=== PATIENT | female | born 1955 | race Caucasian/White ===

== ENCOUNTER 2020-02-19 13:55 | Inpatient (IN) ==
[2020-02-19] MEDS ORDERED: *HR* FentaNYL (PF) 100 MCG/2 ML VIAL IVP ONE ×2 (14:05→15:25)
[2020-02-19 14:21] LABS: Basophils % 0.1 %; Eosinophils % 0.2 %; Hematocrit 38.6 % (35.3-44.9); Hemoglobin 12.2 g/dL (11.5-15.4); Immature Granulocytes % 0.3 % (0-4); Lymphocytes # 0.8 K/mcL (0.6-4.6); Lymphocytes % 9.4 %; Mean Corpuscular HGB Conc 31.6 g/dL (31.6-35.5); Mean Corpuscular Hemoglobin 27.3 pg (28.0-33.3); Mean Corpuscular Volume 86.4 fL (83.0-100.0); Mean Platelet Volume 10.6 fL (9.4-12.4); Monocytes # 0.4 K/mcL (0.0-1.3); Monocytes % 4.1 %; Neutrophils # 7.7 K/mcL (1.6-8.9); Platelet Count 259 K/mcL (140-400); Red Blood Count 4.47 M/mcL (3.82-4.97); Segmented Neutrophils % 85.9 %
[2020-02-19 14:27] LABS: Prothrombin Time 10.9 Seconds (9.4-12.1)
[2020-02-19 15:38] LABS: Alanine Aminotransferase 27 Units/L (7-52); Albumin 3.9 g/dL (3.5-5.7); Albumin/Globulin Ratio 1.4 (1.1-2.2); Alkaline Phosphatase 97 Units/L (34-104); Aspartate Amino Transferase 22 Units/L (13-39); BUN/Creatinine Ratio 22 (6-26); Bilirubin,Total 0.2 mg/dL (0.3-1.0); Blood Urea Nitrogen 17 mg/dL (8-23); Calcium 9.9 mg/dL (8.6-10.3); Carbon Dioxide 24 mEq/L (23-29); Chloride 106 mEq/L (98-107); Globulin 2.7 g/dL (2.4-3.5); Glucose 130 mg/dL (70-105); Osmolality,Calculated 289 (280-300); Potassium 3.9 mEq/L (3.5-5.1); Sodium 138 mEq/L (136-145); Total Protein 6.6 g/dL (6.4-8.9); eGFR For African Americans > 60 (> 60); eGFR For Non-African Americans > 60 (> 60)
[2020-02-19] MEDS ORDERED: Acetaminophen 325 MG TABLET PO PRN (15:52)
[2020-02-19] MEDS ORDERED: Naloxone 0.4 MG/ML INJ IVP PRN (15:52)
[2020-02-19] MEDS ORDERED: Ondansetron 4 MG/2 ML VIAL IVP PRN (15:52)
[2020-02-19] MEDS ORDERED: Ketorolac 15 MG/ML VIAL IVP PRN (15:52)
[2020-02-19] MEDS ORDERED: Artificial Tears SOLN 15 ML BOTTLE BOTH EYES PRN (17:22)
[2020-02-19] MEDS ORDERED: hydrOXYzine pamoate 25 MG CAPSULE PO PRN (17:22)
[2020-02-19] MEDS: *HR* Heparin 5,000 UNIT/ML VIAL SQ SCH ×2 (18:26→23:39)
[2020-02-19] MEDS: *HR* OxyCODONE Immed Rel 5 MG TABLET PO PRN (18:28)
[2020-02-19] MEDS: amLODIPine 5 MG TABLET PO SCH (18:29)
[2020-02-19] MEDS: Gabapentin 400 MG CAPSULE PO SCH (19:56)
[2020-02-19] MEDS: *HR* HYDROcodone/Acet 5/325 mg TABLET PO PRN (20:11)
[2020-02-19] MEDS ORDERED: Latanoprost 2.5 ML BOTTLE BOTH EYES SCH (21:00)
[2020-02-19] MEDS ORDERED: rOPINIRole 0.25 MG TABLET PO SCH (21:00)
[2020-02-20] MEDS: *HR* OxyCODONE Immed Rel 5 MG TABLET PO PRN ×2 (00:49→10:45)
[2020-02-20 01:41] LABS: Hematocrit 40.3 % (35.3-44.9); Hemoglobin 12.9 g/dL (11.5-15.4); Mean Corpuscular Hemoglobin 27.3 pg (28.0-33.3); Mean Corpuscular Volume 85.4 fL (83.0-100.0); Mean Platelet Volume 11.2 fL (9.4-12.4); Platelet Count 263 K/mcL (140-400); Red Blood Count 4.72 M/mcL (3.82-4.97); Red Cell Distribution Width 19.2 % (11.5-14.5); White Blood Count 7.5 K/mcL (4.3-11.1)
[2020-02-20 02:04] LABS: BUN/Creatinine Ratio 19 (6-26); Blood Urea Nitrogen 13 mg/dL (8-23); Calcium 10.4 mg/dL (8.6-10.3); Carbon Dioxide 23 mEq/L (23-29); Chloride 107 mEq/L (98-107); Glucose 94 mg/dL (70-105); Magnesium 1.9 mg/dL (1.6-2.6); Osmolality,Calculated 288 (280-300); Phosphorous 2.7 mg/dL (2.7-4.5); Potassium 3.9 mEq/L (3.5-5.1); Sodium 139 mEq/L (136-145); eGFR For African Americans > 60 (> 60); eGFR For Non-African Americans > 60 (> 60)
[2020-02-20] MEDS: *HR* HYDROcodone/Acet 5/325 mg TABLET PO PRN ×2 (06:22→20:21)
[2020-02-20] MEDS: Gabapentin 400 MG CAPSULE PO SCH ×2 (07:42→20:51)
[2020-02-20] MEDS: amLODIPine 5 MG TABLET PO SCH (07:42)
[2020-02-20] MEDS: *HR* Heparin 5,000 UNIT/ML VIAL SQ SCH ×2 (07:43→18:23)
[2020-02-20] MEDS ORDERED: amLODIPine 5 MG TABLET PO ONE (08:26)
[2020-02-20] MEDS ORDERED: Cholecalciferol (D-3) 1,000 UNIT (25MCG) TABLET PO SCH (09:00)
[2020-02-20] MEDS ORDERED: *HR* OxyCODONE Immed Rel 5 MG TABLET PO PRN (15:17)
[2020-02-20] MEDS ORDERED: Ondansetron 4 MG/2 ML VIAL IVP ONE (15:17)
[2020-02-20] MEDS ORDERED: Ethanol\\Acetic Acid\\Na Ace\\Ben 1,000 ML IRRIG.SOLN IR ONE (15:25)
[2020-02-20] MEDS ORDERED: Ondansetron 4 MG/2 ML VIAL ONE (15:37)
[2020-02-20] MEDS ORDERED: Lidocaine HCL 4 ML Topical Solution (Laryng-O-Jet Kit Sterile Pak) TP ONE (15:37)
[2020-02-20] MEDS ORDERED: *HR* Propofol 200 MG/20 ML VIAL IVP ONE (15:37)
[2020-02-20] MEDS ORDERED: Dexamethasone 4 MG/ML VIAL ONE (15:37)
[2020-02-20] MEDS ORDERED: Lidocaine -MPF 2% 2 ML VIAL ONE (15:37)
[2020-02-20] MEDS ORDERED: *HR* FentaNYL (PF) 100 MCG/2 ML VIAL ONE (15:39)
[2020-02-20] MEDS ORDERED: Vancomycin 1,000 MG VIAL ONE (15:50)
[2020-02-20] MEDS ORDERED: *HR* Midazolam HCl 2 MG/2 ML VIAL ONE (15:56)
[2020-02-20] MEDS ORDERED: CeFAZolin Syr 2,000MG/20 ML 2,000 MG/20 ML SYRINGE IVPB ONE (16:46)
[2020-02-20] MEDS: *HR* HYDROmorphone PF 0.5 MG/0.5 ML SYRINGE IVP PRN ×2 (17:43→17:56)
[2020-02-20] MEDS: *HR* Labetalol 20 MG/4 ML SYRINGE IVP PRN ×2 (18:03→18:13)
[2020-02-20] MEDS ORDERED: Artificial Tears SOLN 15 ML BOTTLE BOTH EYES PRN (18:32)
[2020-02-20] MEDS ORDERED: *HR* HYDROmorphone PF 0.5 MG/0.5 ML SYRINGE IVP PRN (18:32)
[2020-02-20] MEDS ORDERED: Naloxone 0.4 MG/ML INJ IVP PRN (18:32)
[2020-02-20] MEDS ORDERED: hydrOXYzine pamoate 25 MG CAPSULE PO PRN (18:32)
[2020-02-20] MEDS ORDERED: Acetaminophen 325 MG TABLET PO PRN (18:32)
[2020-02-20] MEDS ORDERED: Ringers Solution, Lactated 1,000 ML IVC SCH (18:32)
[2020-02-20] MEDS ORDERED: Ondansetron 4 MG/2 ML VIAL IVP PRN (18:32)
[2020-02-20] MEDS: rOPINIRole 0.25 MG TABLET PO SCH (20:51)
[2020-02-20] MEDS: Latanoprost 2.5 ML BOTTLE BOTH EYES SCH (21:02)
[2020-02-20] MEDS: ceFAZolin 2,000 MG in 0.9 % Sodium Chloride 100 ML IVPB SCH (23:42)
[2020-02-21] MEDS: *HR* OxyCODONE Immed Rel 5 MG TABLET PO PRN ×3 (03:41→18:36)
[2020-02-21 06:20] LABS: Hematocrit 31.7 % (35.3-44.9); Hematocrit 33.3 % (35.3-44.9); Hemoglobin 10.5 g/dL (11.5-15.4); Immature Granulocytes % 0.2 % (0-4); Lymphocytes % 11.6 %; Mean Corpuscular HGB Conc 31.5 g/dL (31.6-35.5); Mean Corpuscular HGB Conc 32.8 g/dL (31.6-35.5); Mean Corpuscular Hemoglobin 26.9 pg (28.0-33.3); Mean Corpuscular Volume 85.2 fL (83.0-100.0); Mean Platelet Volume 10.7 fL (9.4-12.4); Mean Platelet Volume 10.8 fL (9.4-12.4); Monocytes # 0.7 K/mcL (0.0-1.3); Neutrophils # 6.5 K/mcL (1.6-8.9); Platelet Count 222 K/mcL (140-400); Platelet Count 235 K/mcL (140-400); Red Blood Count 3.72 M/mcL (3.82-4.97); Red Blood Count 3.91 M/mcL (3.82-4.97); Red Cell Distribution Width 19.1 % (11.5-14.5); Segmented Neutrophils % 79.2 %; White Blood Count 8.3 K/mcL (4.3-11.1); White Blood Count 8.6 K/mcL (4.3-11.1)
[2020-02-21 06:22] LABS: Hemoglobin 10.4 g/dL (11.5-15.4)
[2020-02-21 06:37] LABS: BUN/Creatinine Ratio 18 (6-26); Blood Urea Nitrogen 12 mg/dL (8-23); Calcium 9.7 mg/dL (8.6-10.3); Carbon Dioxide 26 mEq/L (23-29); Chloride 104 mEq/L (98-107); Glucose 127 mg/dL (70-105); Osmolality,Calculated 283 (280-300); Potassium 3.8 mEq/L (3.5-5.1); Sodium 136 mEq/L (136-145); eGFR For African Americans > 60 (> 60); eGFR For Non-African Americans > 60 (> 60)
[2020-02-21] MEDS: Aspirin Enteric Coated 325 MG Tablet PO SCH (07:45)
[2020-02-21] MEDS: Gabapentin 400 MG CAPSULE PO SCH ×2 (07:46→21:55)
[2020-02-21] MEDS: Cholecalciferol (D-3) 1,000 UNIT (25MCG) TABLET PO SCH (07:46)
[2020-02-21] MEDS: amLODIPine 5 MG TABLET PO SCH (07:46)
[2020-02-21] MEDS: *HR* HYDROcodone/Acet 5/325 mg TABLET PO PRN ×3 (07:46→21:55)
[2020-02-21] MEDS: ceFAZolin 2,000 MG in 0.9 % Sodium Chloride 100 ML IVPB SCH (07:47)
[2020-02-21] MEDS ORDERED: amLODIPine 5 MG TABLET PO SCH (09:00)
[2020-02-21] MEDS: rOPINIRole 0.25 MG TABLET PO SCH (21:55)
[2020-02-21] MEDS: Latanoprost 2.5 ML BOTTLE BOTH EYES SCH (21:57)
[2020-02-21] MEDS: tiZANidine 4 MG TABLET PO PRN (23:07)
[2020-02-22] MEDS: *HR* OxyCODONE Immed Rel 5 MG TABLET PO PRN ×2 (01:09→08:01)
[2020-02-22 01:40] LABS: Hemoglobin 9.2 g/dL (11.5-15.4); Mean Corpuscular HGB Conc 31.7 g/dL (31.6-35.5); Mean Platelet Volume 10.6 fL (9.4-12.4); Platelet Count 198 K/mcL (140-400); Red Blood Count 3.41 M/mcL (3.82-4.97); White Blood Count 5.7 K/mcL (4.3-11.1)
[2020-02-22] MEDS: *HR* HYDROcodone/Acet 5/325 mg TABLET PO PRN ×2 (03:55→13:11)
[2020-02-22] MEDS ORDERED: *HR* OxyCODONE Immed Rel 5 MG TABLET PO PRN (07:36)
[2020-02-22] MEDS: Gabapentin 400 MG CAPSULE PO SCH (07:55)
[2020-02-22] MEDS: Cholecalciferol (D-3) 1,000 UNIT (25MCG) TABLET PO SCH (08:02)
[2020-02-22] MEDS: tiZANidine 4 MG TABLET PO PRN (08:02)
[2020-02-22] MEDS: Aspirin Enteric Coated 325 MG Tablet PO SCH (08:02)
[2020-02-22] MEDS: amLODIPine 5 MG TABLET PO SCH (08:03)
[2020-02-22 11:25] VITALS: BP 118/58
== END 2020-02-22 13:35 | disposition home health service (06) | DRG 470 ==
LOC: EMEROOARM 13:55 → 3NENU 13:55 → SUATTDRO 15:58 → 3NENU 18:02
PROVIDERS: ADMIT Internal Medicine; ATTEND Internal Medicine